=== PATIENT | male | born 1980 | race Caucasian/White ===

== ENCOUNTER 2017-04-26 17:32 | Emergency (ER) | payer MEDICAID, OTHER ==
[~2017-04-26] VITALS: Ht 177.8 cm; Wt 68.2 kg
[2017-04-26 18:48] VITALS: Ht 177.8 cm; Wt 68.2 kg
[2017-04-26] MEDS ORDERED: HYDROCODONE/APAP (10/325) TAB PO ONE (19:30)
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
[2017-04-26 20:15] LABS: ADD UMIC NO; UR ASCORBIC ACID 40 mg/dL (NEGATIVE); UR BILIRUBIN (Dip) NEGATIVE (NEGATIVE); UR BLOOD (Dip) NEGATIVE (NEGATIVE); UR CLARITY SLIGHTLY CLOUDY (CLEAR); UR COLOR YELLOW (YELLOW); UR GLUCOSE (Dip) NEGATIVE (NEGATIVE); UR KETONES (Dip) NEGATIVE (NEGATIVE); UR LEUKOCYTE ESTERASE (Dip) NEGATIVE Leu/ul (NEGATIVE); UR MUCUS MODERATE /HPF (NONE SEEN); UR NITRITE (Dip) NEGATIVE (NEGATIVE); UR RBC 0 /HPF (0-5); UR SPECIFIC GRAVITY (Dip) 1.031 (1.003-1.030); UR TOTAL PROTEIN (Dip) NEGATIVE (NEGATIVE); UR UROBILINOGEN (Dip) 1+ mg/dL (NEGATIVE)
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
[2017-04-26] MEDS ORDERED: HYDR-906 PO (20:49)
[2017-04-26] MEDS ORDERED: CYCL-319 PO (20:49)
[2017-04-26] MEDS ORDERED: IBUP-1542 PO (20:49)
== END 2017-04-26 21:05 | disposition home or self-care (01) ==
LOC: FTE 17:32
DX: S20.211A Contusion of right front wall of thorax, initial encounter (principal); S80.11XA Contusion of right lower leg, initial encounter; S39.92XA Unspecified injury of lower back, initial encounter; V13.4XXA Pedal cycle driver injured in collision with car, pick-up truck or van in traffic accident, initial encounter
CPT/HCPCS: 71010; 71100; 72131; 73550; 81001; Z7502; Z7610; 81003